=== PATIENT | male | born 1945 | race Caucasian/White ===

== ENCOUNTER 2016-12-10 09:49 | Emergency (ER) | payer OTHER ==
[~2016-12-10] VITALS: Ht 165.1 cm; Wt 72.8 kg
[~2016-12-10 09:49] MED LIST: ALD25 PO; AMLODIPINE BESY10 M1 PO; FUROSEMIDE20 MG PO; GLIPIZIDE5 MG PO; HYDRALAZINE HCL25 MG PO; JANUVIA100 M1 PO; Januvia PO; K10 PO; LIPI10 PO
[2016-12-10 13:00] VITALS: BP 140/79
== END 2016-12-10 13:00 | disposition home or self-care (01) ==
LOC: ED 09:49
DX: L03.032 Cellulitis of left toe (principal); E11.9 Type 2 diabetes mellitus without complications; I10 Essential (primary) hypertension; E78.5 Hyperlipidemia, unspecified; Z89.422 Acquired absence of other left toe(s)
CPT/HCPCS: Q0092

== ENCOUNTER 2017-01-10 11:34 | Inpatient (IN) | payer OTHER ==
[~2017-01-10] VITALS: Ht 165.1 cm; Wt 58.7 kg
[2017-01-10 12:03] LABS: BASOPHIL % 1.3 % (0-2); RED CELL DISTRIBUTION WIDTH 13.4 % (11.5-14.5)
[2017-01-10 12:04] LABS: PLATELET COUNT 113 x10^3mcL (130-400)
[2017-01-10 12:16] LABS: ALBUMIN 3.4 g/dL (3.4-5.0); BILIRUBIN TOTAL 0.4 mg/dL (0.20-1.00); CALCIUM 8.3 mg/dL (8.5-10.1); CARBON DIOXIDE 21.9 mmol/L (21-32); CREATININE SERUM 3.1 mg/dL (0.7-1.3); POTASSIUM SERUM 5.4 mmol/L (3.5-5.1); TOTAL PROTEIN, SERUM 6.7 g/dL (6.4-8.2)
[2017-01-10 14:01] VITALS: BP 165/73
[2017-01-10] MEDS ORDERED: JANUVIA100 M1 PO (14:15)
[2017-01-10] MEDS ORDERED: SODIUM BICARBO650 MG PO (14:15)
[2017-01-10] MEDS ORDERED: LOT5 PO (14:15)
[2017-01-10] MEDS ORDERED: HYDROCHLOROTHIA25 MG PO (14:15)
[2017-01-10] MEDS ORDERED: GLIPIZIDE5 M2 PO (14:15)
[2017-01-10 14:30] LABS: CHOLESTEROL/HDL RATIO 3.8
[2017-01-10 14:51] LABS: FREE T4 0.78 ng/dL (0.76-1.46); FREE THYROXINE INDEX 1.7 ug/dL (1.4-4.5); T4(THYROXINE) 5.1 ug/dL (4.7-13.3)
[2017-01-10 15:00] LABS: MAGNESIUM 1.9 mg/dL (1.8-2.4); PHOSPHOROUS 4.1 mg/dL (2.5-4.9)
[2017-01-10 15:33] LABS: T3 TOTAL 0.77 ng/mL
[2017-01-10] MEDS ORDERED: LANTI SC (19:25)
[2017-01-10 19:39] VITALS: BP 154/77
[2017-01-10 20:32] LABS: CALCIUM 7.8 mg/dL (8.5-10.1); CARBON DIOXIDE 24.3 mmol/L (21-32); CREATININE SERUM 2.8 mg/dL (0.7-1.3); POTASSIUM SERUM 5.1 mmol/L (3.5-5.1)
[2017-01-10 21:39] VITALS: BP 144/68
[2017-01-10 21:55] VITALS: BP 167/84
[2017-01-11 06:07] VITALS: BP 136/68
[2017-01-11 06:55] LABS: BASOPHIL % 0.7 % (0-2); RED CELL DISTRIBUTION WIDTH 13.1 % (11.5-14.5)
[2017-01-11 07:06] LABS: CARBON DIOXIDE 23.6 mmol/L (21-32); CREATININE SERUM 2.8 mg/dL (0.7-1.3); POTASSIUM SERUM 4.8 mmol/L (3.5-5.1)
[2017-01-11 07:23] LABS: PLATELET COUNT 109 x10^3mcL (130-400)
[2017-01-11 10:00] VITALS: BP 139/77
[2017-01-11 14:00] VITALS: BP 149/77
[2017-01-11 18:43] VITALS: BP 158/79
[2017-01-11 21:37] VITALS: BP 143/85
[2017-01-12 05:50] VITALS: BP 133/76
[2017-01-12 06:19] LABS: BASOPHIL % 0.9 % (0-2); RED CELL DISTRIBUTION WIDTH 12.8 % (11.5-14.5)
[2017-01-12 06:26] LABS: CALCIUM 8.1 mg/dL (8.5-10.1); CARBON DIOXIDE 21.3 mmol/L (21-32); CREATININE SERUM 2.7 mg/dL (0.7-1.3); POTASSIUM SERUM 3.8 mmol/L (3.5-5.1)
[2017-01-12 06:46] LABS: PLATELET COUNT 113 x10^3mcL (130-400)
[2017-01-12 06:50] VITALS: BP 109/52
[2017-01-12 10:55] VITALS: BP 129/69
[2017-01-12 13:00] VITALS: BP 129/69
[2017-01-12] MEDS ORDERED: PHARMASSURE VI500 MG PO (16:06)
[2017-01-12] MEDS ORDERED: FERG PO (16:06)
[2017-01-12] MEDS ORDERED: NOR10 PO (16:07)
[2017-01-12] MEDS ORDERED: JANUVIA50 M1 PO (16:39)
== END 2017-01-12 16:39 | disposition home or self-care (01) | DRG 684 ==
LOC: ED 11:34 → DU 12:53 → MU 12:53 → DU 14:01 → MU 01-12 10:00
PROVIDERS: Emergency Medicine; ADMIT Family Medicine
DX: N17.0 Acute kidney failure with tubular necrosis (principal); E87.5 Hyperkalemia; I16.0 Hypertensive urgency; I12.9 Hypertensive chronic kidney disease with stage 1 through stage 4 chronic kidney disease, or unspecified chronic kidney disease; N18.9 Chronic kidney disease, unspecified; E11.65 Type 2 diabetes mellitus with hyperglycemia; E11.22 Type 2 diabetes mellitus with diabetic chronic kidney disease; E78.5 Hyperlipidemia, unspecified; D64.9 Anemia, unspecified; H35.30 Unspecified macular degeneration; Z68.21 Body mass index [BMI] 21.0-21.9, adult; Z87.891 Personal history of nicotine dependence; Z79.4 Long term (current) use of insulin
CPT/HCPCS: 82962; 83880; 84439; J0360; J1815; J3490; J7030; Q0092

== ENCOUNTER 2017-02-20 21:06 | Emergency (ER) | payer OTHER ==
[~2017-02-20 21:06] MED LIST changes: +FERG PO; +GLIPIZIDE5 M2 PO; +HYDROCHLOROTHIA25 MG PO; +JANUVIA50 M1 PO; +LANTI SC; +LOT5 PO; +NOR10 PO; +PHARMASSURE VI500 MG PO; +SODIUM BICARBO650 MG PO
[2017-02-20 21:38] VITALS: BP 130/95
== END 2017-02-20 21:38 | disposition home or self-care (01) ==
LOC: ED 21:06
DX: L84 Corns and callosities (principal); E11.9 Type 2 diabetes mellitus without complications; Z79.2 Long term (current) use of antibiotics; Z79.84 Long term (current) use of oral hypoglycemic drugs

== ENCOUNTER 2017-12-01 08:02 | Emergency (ER) | payer OTHER ==
[~2017-12-01] VITALS: Ht 167.6 cm; Wt 71.7 kg
[2017-12-01 08:10] VITALS: Ht 167.6 cm; Wt 71.7 kg
[2017-12-01 10:34] VITALS: BP 136/78
== END 2017-12-01 10:34 | disposition home or self-care (01) ==
LOC: ED 08:02
DX: N12 Tubulo-interstitial nephritis, not specified as acute or chronic (principal); N28.9 Disorder of kidney and ureter, unspecified; I10 Essential (primary) hypertension; E11.9 Type 2 diabetes mellitus without complications; E78.00 Pure hypercholesterolemia, unspecified
CPT/HCPCS: 87804; Q0092

== ENCOUNTER 2018-07-04 10:52 | Emergency (ER) | payer OTHER ==
[~2018-07-04] VITALS: Ht 167.6 cm; Wt 73.0 kg
[2018-07-04 11:40] LABS: PLATELET COUNT 150 x10^3mcL (130-400); RED CELL DISTRIBUTION WIDTH 14.4 % (11.5-14.5)
[2018-07-04 11:41] LABS: UA SPECIFIC GRAVITY >=1.030 (1.005-1.035); microscopic required? YES; urine erythrocyte 1+ (NEGATIVE)
[2018-07-04 11:55] LABS: ALKALINE PHOSPHATASE 73 U/L (46-116); ALT/SGPT 20 U/L (16-63); AST/SGOT 20 U/L (15-37); BILIRUBIN TOTAL 0.47 mg/dL (0.20-1.00); CALCIUM 7.8 mg/dL (8.5-10.1); CARBON DIOXIDE 22.5 mmol/L (21-32); CHLORIDE SERUM 106 mmol/L (98-107); GLUCOSE SERUM 230 mg/dL (74-106); POTASSIUM SERUM 4.3 mmol/L (3.5-5.1); SODIUM SERUM 142 mmol/L (136-145); TOTAL PROTEIN, SERUM 7.1 g/dL (6.4-8.2)
[2018-07-04 11:56] LABS: ALBUMIN 3.2 g/dL (3.4-5.0)
[2018-07-04 11:57] LABS: CREATININE SERUM 4.2 mg/dL (0.7-1.3)
[2018-07-04 12:34] VITALS: BP 130/75
== END 2018-07-04 12:34 | disposition home or self-care (01) ==
LOC: ED 10:52
PROVIDERS: Specialist
DX: R60.1 Generalized edema (principal); N28.9 Disorder of kidney and ureter, unspecified; I10 Essential (primary) hypertension; E11.9 Type 2 diabetes mellitus without complications; R80.9 Proteinuria, unspecified; E78.00 Pure hypercholesterolemia, unspecified; Z98.890 Other specified postprocedural states
CPT/HCPCS: 36415; 83880; Q0092

== ENCOUNTER 2018-11-29 14:49 | Emergency (ER) | payer OTHER ==
[~2018-11-29] VITALS: Ht 167.6 cm; Wt 73.0 kg
[2018-11-29 15:13] VITALS: BP 161/90; Ht 167.6 cm; Wt 73.0 kg
[2018-11-29 16:50] LABS: ALKALINE PHOSPHATASE 59 U/L (46-116); ALT/SGPT 16 U/L (16-63); AST/SGOT 13 U/L (15-37); BILIRUBIN TOTAL 0.3 mg/dL (0.20-1.00); CALCIUM 7.6 mg/dL (8.5-10.1); CARBON DIOXIDE 18.4 mmol/L (21-32); CHLORIDE SERUM 106 mmol/L (98-107); GLUCOSE SERUM 194 mg/dL (74-106); POTASSIUM SERUM 4.9 mmol/L (3.5-5.1); SODIUM SERUM 138 mmol/L (136-145); TOTAL PROTEIN, SERUM 6.8 g/dL (6.4-8.2)
[2018-11-29 16:53] LABS: ALBUMIN 3.3 g/dL (3.4-5.0)
[2018-11-29 16:54] LABS: CREATININE SERUM 6.1 mg/dL (0.7-1.3)
== END 2018-11-29 17:27 | disposition home or self-care (01) ==
LOC: ED 14:49
PROVIDERS: Emergency Medicine
DX: N18.6 End stage renal disease (principal); I12.0 Hypertensive chronic kidney disease with stage 5 chronic kidney disease or end stage renal disease; E11.22 Type 2 diabetes mellitus with diabetic chronic kidney disease; E78.00 Pure hypercholesterolemia, unspecified; Z99.2 Dependence on renal dialysis; Z89.412 Acquired absence of left great toe; Z89.022 Acquired absence of left finger(s)
CPT/HCPCS: 36415

== ENCOUNTER 2018-12-06 14:01 | Emergency (ER) | payer OTHER ==
[~2018-12-06] VITALS: Ht 165.1 cm; Wt 73.0 kg
[2018-12-06 15:35] LABS: BASOPHIL % 0.7 % (0-2)
[2018-12-06 15:36] LABS: PLATELET COUNT 99 x10^3mcL (130-400)
[2018-12-06 16:08] LABS: ALKALINE PHOSPHATASE 66 U/L (46-116); ALT/SGPT 16 U/L (16-63); AST/SGOT 19 U/L (15-37); BILIRUBIN TOTAL 0.3 mg/dL (0.20-1.00); CALCIUM 6.8 mg/dL (8.5-10.1); CARBON DIOXIDE 22.2 mmol/L (21-32); CHLORIDE SERUM 104 mmol/L (98-107); CHOLESTEROL 189 mg/dL (<200); GLUCOSE SERUM 219 mg/dL (74-106); HDL CHOLESTEROL 44 mg/dL (40-60); LIPASE 184 IU/L (73-393); MAGNESIUM 2.1 mg/dL (1.8-2.4); POTASSIUM SERUM 5.2 mmol/L (3.5-5.1); SODIUM SERUM 139 mmol/L (136-145); T4(THYROXINE) 5.4 ug/dL (4.7-13.3); TOTAL PROTEIN, SERUM 6.3 g/dL (6.4-8.2)
[2018-12-06 16:13] LABS: CREATININE SERUM 5.7 mg/dL (0.7-1.3)
[2018-12-06 16:56] LABS: microscopic required? YES; urine erythrocyte TRACE (NEGATIVE)
[2018-12-06 17:03] LABS: AMPHETAMINE QUAL UR NONE DETECTED (See below)
[2018-12-06 18:44] VITALS: BP 150/79
== END 2018-12-06 18:44 | disposition home or self-care (01) ==
LOC: ED 14:01
PROVIDERS: Emergency Medicine
DX: R25.1 Tremor, unspecified (principal); E11.22 Type 2 diabetes mellitus with diabetic chronic kidney disease; I12.0 Hypertensive chronic kidney disease with stage 5 chronic kidney disease or end stage renal disease; D63.1 Anemia in chronic kidney disease; N18.6 End stage renal disease; D69.6 Thrombocytopenia, unspecified; E78.00 Pure hypercholesterolemia, unspecified; Z89.411 Acquired absence of right great toe; Z89.422 Acquired absence of other left toe(s); Z99.2 Dependence on renal dialysis
CPT/HCPCS: 36415; 82962; G0480; Q0092

== ENCOUNTER 2020-04-21 15:35 | Emergency (ER) | payer OTHER ==
[~2020-04-21] VITALS: Ht 170.2 cm; Wt 70.5 kg
[2020-04-21 15:47] VITALS: Ht 170.2 cm; Wt 70.5 kg
[2020-04-21 17:18] LABS: CALCIUM 8.5 mg/dL (8.5-10.1); CARBON DIOXIDE 24.6 mmol/L (21-32); CHLORIDE SERUM 98 mmol/L (98-107); GLUCOSE SERUM 303 mg/dL (74-106); POTASSIUM SERUM 3.5 mmol/L (3.5-5.1); SODIUM SERUM 136 mmol/L (136-145)
[2020-04-21 17:21] LABS: CREATININE SERUM 7.6 mg/dL (0.7-1.3)
[2020-04-21 17:43] VITALS: BP 161/80
== END 2020-04-21 17:43 | disposition home or self-care (01) ==
LOC: ED 15:35
PROVIDERS: Emergency Medicine
DX: E11.65 Type 2 diabetes mellitus with hyperglycemia (principal); E78.00 Pure hypercholesterolemia, unspecified; E11.22 Type 2 diabetes mellitus with diabetic chronic kidney disease; I12.9 Hypertensive chronic kidney disease with stage 1 through stage 4 chronic kidney disease, or unspecified chronic kidney disease; N18.9 Chronic kidney disease, unspecified
CPT/HCPCS: 82962

== ENCOUNTER 2020-06-06 11:04 | Emergency (ER) | payer OTHER ==
[~2020-06-06] VITALS: Ht 165.1 cm; Wt 68.5 kg
[2020-06-06 11:14] VITALS: Ht 165.1 cm; Wt 68.5 kg
[2020-06-06 13:03] LABS: BASOPHIL % 0.5 % (0-2); PLATELET COUNT 142 x10^3mcL (130-400)
[2020-06-06 13:08] LABS: RED CELL DISTRIBUTION WIDTH 15.1 % (11.5-14.5)
[2020-06-06 13:12] LABS: ALKALINE PHOSPHATASE 129 U/L (46-116); ALT/SGPT 21 U/L (16-63); AST/SGOT 21 U/L (15-37); BILIRUBIN TOTAL 0.5 mg/dL (0.20-1.00); CALCIUM 8.2 mg/dL (8.5-10.1); CARBON DIOXIDE 30.5 mmol/L (21-32); CHLORIDE SERUM 98 mmol/L (98-107); GLUCOSE SERUM 255 mg/dL (74-106); SODIUM SERUM 134 mmol/L (136-145); TOTAL PROTEIN, SERUM 6.3 g/dL (6.4-8.2)
[2020-06-06 13:15] LABS: ALBUMIN 3.2 g/dL (3.4-5.0); CREATININE SERUM 8.1 mg/dL (0.7-1.3)
[2020-06-06 14:20] VITALS: BP 159/76
== END 2020-06-06 14:20 | disposition home or self-care (01) ==
LOC: ED 11:04
PROVIDERS: Emergency Medicine
DX: R55 Syncope and collapse (principal); E11.22 Type 2 diabetes mellitus with diabetic chronic kidney disease; I12.9 Hypertensive chronic kidney disease with stage 1 through stage 4 chronic kidney disease, or unspecified chronic kidney disease; N18.9 Chronic kidney disease, unspecified; E78.00 Pure hypercholesterolemia, unspecified; Z98.890 Other specified postprocedural states
CPT/HCPCS: 82962; 83880; J7030; Q0092